=== PATIENT | female | born 1960 | race Caucasian/White ===

== ENCOUNTER 2016-09-06 19:23 | Emergency (ER) | payer BC ==
[~2016-09-06 19:23] MED LIST: IBUPROFEN800 MG PO; NEURONTIN300 MG PO; PERCOCET 5-3251 EACH PO; SYNTHROID125 MCG PO
[2016-09-06 20:25] LABS: BASO % 0.2 % (0.1-1.2); EOS # 0.1 10_X3_uL (0.0-0.4); EOS % 0.6 % (0.7-5.8); GRAN # 13.3 10_X3_uL (1.6-6.1); GRAN % 85.6 % (34.0-71.1); HEMATOCRIT 40.8 % (34-45); HEMOGLOBIN 13.5 g/dL (11.2-15.7); LYMPH # 1.3 10_X3_uL (1.2-3.7); LYMPH % 8.6 % (19.3-51.7); MEAN CORPUSCULAR HEMOGLOBIN 30.5 pg (27.0-33.0); MEAN CORPUSCULAR HGB CONC 33.1 g/dL (32.0-36.0); MEAN CORPUSCULAR VOLUME 92.3 fL (79-95); MEAN PLATELET VOLUME 11.1 fl (7.5-11.5); MONO # 0.8 10_X3_uL (0.2-0.9); PLATELET COUNT 225 x10_3/uL (182-369); RED BLOOD COUNT 4.42 x10_6/uL (3.9-5.2); RED CELL DISTRIBUTION WIDTH 13.6 % (11.7-14.4); WHITE BLOOD COUNT 15.6 x10_3/uL (4.0-10.0)
[2016-09-06 21:25] LABS: BLOOD UREA NITROGEN 7 mg/dL (7-18); CALCIUM 8.9 mg/dL (8.7-10.7); CARBON DIOXIDE 27 mmol/L (21-32); CREATININE 0.7 mg/dL (0.6-1.3); GLUCOSE,RANDOM 94 mg/dL (70-99); SODIUM 138 mmol/L (136-145)
== END 2016-09-06 22:00 | disposition home or self-care (01) ==
LOC: ER 19:23
PROVIDERS: Internal Medicine
DX: R05 Cough (principal); R19.7 Diarrhea, unspecified; R11.0 Nausea; D72.829 Elevated white blood cell count, unspecified; R50.9 Fever, unspecified; R51 Headache; Z79.899 Other long term (current) drug therapy
CPT/HCPCS: 36415; 71020; 80048; 85025; 86738; 87400; 96372; 99284-25; J8597